=== PATIENT | male | born 1995 | race Two or more races ===

== ENCOUNTER 2018-01-28 11:48 | Emergency (ER) | payer OTHER ==
[~2018-01-28] VITALS: Ht 180.3 cm; Wt 68.9 kg
[2018-01-28 12:11] VITALS: BP 115/72
[2018-01-28] MEDS ORDERED: IPRATROPIUM BROM 0.5 MG/2.5ML INH SOL NEB ONE (14:45)
[2018-01-28] MEDS ORDERED: ALBUTEROL SULF 2.5 MG/0.5ML(0.5%) NEB SOLN NEB ONE (14:45)
== END 2018-01-28 15:42 | disposition home or self-care (01) ==
LOC: ER 11:48
DX: J40 Bronchitis, not specified as acute or chronic (principal)
CPT/HCPCS: 71046; 94640; 99283; J7611; J7644